=== PATIENT | male | born 1985 | race Caucasian/White ===

== ENCOUNTER 2023-10-01 05:30 | Inpatient (IN) | payer BC, OTHER ==
[~2023-10-01 05:30] MED LIST: ONDANSETRON ODT 4 MG TAB ONE
[2023-10-01] MEDS ORDERED: NICOTINE 14MG/24HR PATCH TRANSDERM ONE (07:46)
[2023-10-01] MEDS ORDERED: buPROPion XL 150 MG TAB.ER.24H PO ONE (08:03)
[2023-10-02] MEDS ORDERED: buPROPion XL 150 MG TAB.ER.24H PO ONE (07:59)
[2023-10-03] MEDS ORDERED: SERTRALINE 25 MG TAB ONE (08:21)
[2023-10-03] MEDS ORDERED: buPROPion XL 150 MG TAB.ER.24H PO ONE (08:21)
[2023-10-04] MEDS ORDERED: buPROPion XL 150 MG TAB.ER.24H PO ONE (08:11)
[2023-10-04] MEDS ORDERED: SERTRALINE 50 MG TAB ONE (09:11)
[2023-10-05] MEDS ORDERED: SERTRALINE 50 MG TAB ONE (08:18)
[2023-10-05] MEDS ORDERED: buPROPion XL 150 MG TAB.ER.24H PO ONE (08:18)
== END 2023-10-05 14:27 | disposition home or self-care (01) | DRG 918 ==
LOC: OR 05:30 → PSY 05:30 → 3NCARDOBS 05:31 → UNDOADMIN 05:31 → 3MHU 05:35 → UNDODISIN 10-05 14:27
PROVIDERS: ADMIT Psychiatry & Neurology Psychiatry; ATTEND Psychiatry & Neurology Psychiatry
DX: T65.91XA Toxic effect of unspecified substance, accidental (unintentional), initial encounter (principal); R45.851 Suicidal ideations; N17.9 Acute kidney failure, unspecified; F32.A Depression, unspecified; Z71.51 Drug abuse counseling and surveillance of drug abuser
CPT/HCPCS: 93005; 99285